=== PATIENT | female | born 1950 | race African-American/Black ===

== ENCOUNTER 2019-08-26 09:50 | Emergency (ER) | payer MEDICARE, MEDICAID ==
[~2019-08-26] VITALS: Ht 162.6 cm; Wt 66.0 kg
[2019-08-26 09:57] VITALS: BP 0/0
[2019-08-26] MEDS ORDERED: EPINEPHRINE 0.1MG/ML (1:10,000) 10ML SYR ONE ×2 (10:09→10:13)
[2019-08-26] MEDS ORDERED: CALCIUM CHLORIDE 1GM/10ML SYR IV ONE (10:14)
== END 2019-08-26 10:11 | disposition expired ==
LOC: ER 09:50
DX: I46.9 Cardiac arrest, cause unspecified (principal); Z85.9 Personal history of malignant neoplasm, unspecified; E11.9 Type 2 diabetes mellitus without complications; I10 Essential (primary) hypertension; Z88.0 Allergy status to penicillin
CPT/HCPCS: 31500; 36556; 92950; 99285; J3490